=== PATIENT | male | born 2000 | race Caucasian/White ===

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

== ENCOUNTER 2023-01-29 11:17 | Emergency (ER) | payer SELFPAY ==
[2023-01-29 12:09] VITALS: BP 118/71; PULSE 58; TEMP 36.6; O2SAT 100; BMI 23.5
--- NOTE | 2023-01-29 12:22 | ED_ITS ---
HPI - Ear Problem General: Chief complaint: Ear Stated complaint: Not able to hear out of left ear Time Seen by Provider: 01/29/23 11:20 Source: patient Mode of arrival: ambulatory Limitations: no limitations History of Present Illness: Patient is a 22-year-old male who presents to ED today with complaint of bilateral hearing loss with the left ear being greater than the right. Patient states symptoms started over the last couple of days. He started to notice pain in the left ear yesterday. No tinnitus or drainage from the ear noted. No other URI-like symptoms. No headache or neck pain. MD Complaint: ear pain and decreased hearing Location: bilateral Duration: constant Severity: mild Relieving factors: nothing Exacerbating factors: nothing Discharge from ear: no Associated symptoms: Reports no associated symptoms; Denies ear or mastoid pain, fever(s), headache(s), neck pain or tinnitus Treatment prior to arrival: none Review of Systems Const: Denies: fever(s), chills, body aches, fatigue or malaise Eyes: Denies: change in vision, blurry vision, photophobia, floaters or seeing flashes ENMT: Reports: change in hearing; Denies: ear or mastoid pain, ear discharge, tinnitus, disequilibrium, nasal discharge or nasal congestion GI: Denies: nausea or vomiting Musc: Denies: neck pain Neuro: Denies: headache(s) PFS ED PFSH: Medical History (Updated 01/29/23 @ 13:19 by UMESH Klein) ADHD (attention deficit hyperactivity disorder) Bipolar disease, chronic Depression Social History Smoking and tobacco status: never smoked Quit status (tobacco): not considering quitting Second hand smoke exposure: Yes Alcohol intake: never Desire information about alcohol rehabilitation?: No Desire information about substance/drug rehabilitation?: No Caregiver/support person: Yes Lives independently: No Marital status: Single Current occupational status: employed Current occupation: [employer] Current gender identity: Male Physical Exam Const: COMMON NORMALS: no acute distress, average body habitus, no limitations, alert and well nourished HENMT: COMMON NORMALS: normocephalic, atraumatic, external ears normal, Normal external nose present, Normal nasal mucous membranes and turbinates present and oropharynx normal HEAD & SCALP: normal to inspection, normocephalic and atraumatic FACE & SINUS: normal facial exam NOSE: Normal external nose present and Normal nasal mucous membranes and turbinates present EXTERNAL EAR: Yes external ears normal, Yes mastoids normal and Yes no periauricular adenopathy EXTERNAL AUDITORY CANAL: Abnormal EAC present EAC laterality: bilateral cerumen impaction TYMPANIC MEMBRANE: TM normal on the right (visualized after cerumen impaction was cleared) and unable to visualize TM (left due to otic discharge) Neuro: SENSORIUM/ORIENTATION: Yes alert Procedures Ear Wax Removal Both Ears: Results: Re-examined: cerumen removed completely TM Examination: TM(s) intact, normal appearance (on R; L TM unable to visualize due to otic discharge) Ear Canal Exam: atraumatic Patient Tolerated Procedure: well Complications: no problems Technique: ear canal irrigated and ear canal curetted Course Vital Signs: Vital signs: Vital Signs Temperature 97.8 F 01/29/23 12:09 Pulse Rate 58 L 01/29/23 12:09 Blood Pressure 118/71 01/29/23 12:09 Pulse Oximetry 100 01/29/23 12:09 Oxygen Delivery Me thod 01/29/23 12:09 MDM - Ear Medical Decision Making Hearing improved after cerumen impaction were cleared. He did have quite a bit of otic discharge to L EAC after cerumen was removed. Will place on Ciprodex for concerns for possible otitis externa. Return to ED precautions given. Discharge Plan Discharge Patient Disposition: Home Clinical Impression: Bilateral impacted cerumen Acute otitis externa of left ear Qualifiers: Otitis externa type: unspecified type Qualified Code(s): H60.502 - Unspecified acute noninfective otitis externa, left ear Condition: Stable Prescriptions: New Ciprodex 0.3-0.1 % drops,suspension 4 drp otic (ear) BID 7 Days Qty: 7.5 0RF Discharge Orders: Discharge ED (Routine); Ordered 01/29/23 Ordered By: Nisha Lowe Patient Instructions: Otitis Externa - Adult Activity Restrictions/Additional Instructions: As we discussed you need to follow-up with your primary care provider or walk-in clinic in 5 to 7 days to assess for improvement/resolution of symptoms. 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
--- NOTE | 2023-02-05 14:45 | DCPLANNER ---
Addendum entered by Beatriz Garibay 02/05/23 14:45: TCM called patient due to no primary care physician on 02.05.23 - no answer at this time. Original Note: TCM called patient due to no primary care physician. TCM called patient on 02.03.23 - no answer at this time.
== END 2023-01-29 13:41 | disposition home or self-care (01) ==
PROVIDERS: Emergency Provider Physician Assistant
DX: H60.502 Unspecified acute noninfective otitis externa, left ear (principal); H61.23 Impacted cerumen, bilateral
CPT/HCPCS: 99283

== ENCOUNTER 2023-06-17 04:29 | Emergency (ER) | payer SELFPAY ==
[2023-06-17 04:33] VITALS: BP 125/84; PULSE 74; RESP 16; TEMP 36.7; O2SAT 100; BMI 19.1
[2023-06-17 04:36] VITALS: BP 110/64; PULSE 62; RESP 16; O2SAT 98
--- NOTE | 2023-06-17 04:36 | ED_ITS ---
HPI - Nausea/Vomiting/Diarrhea General: Chief complaint: Nausea/Vomiting/Diarrhea Stated complaint: Vomiting Time Seen by Provider: 06/17/23 04:31 Source: patient Mode of arrival: ambulatory Limitations: no limitations History of Present Illness: 22-year-old male states he has been having vomiting tonight since midnight. States last time he threw up was at 230 he does smoke marijuana almost every day he denies any abdominal pain denies any fevers he denies any worsening proving factors. Denies any diarrhea. Associated nausea: Yes Associated symtoms: Reports nausea; Denies chest pain or headache(s) Review of Systems Const: Denies: fever(s) or chills Eyes: Denies: eye discomfort ENMT: Denies: throat pain or dental pain Card: Denies: chest pain Resp: Denies: dyspnea GI: Reports: nausea and vomiting; Denies: abdominal pain Musc: Denies: neck pain or back pain Skin/Breast: Denies: rash Neuro: Denies: headache(s) PFS ED PFSH: Medical History (Updated 06/17/23 @ 05:26 by Mainor Hoyos MD) ADHD (attention deficit hyperactivity disorder) Bipolar disease, chronic Depression Social History Smoking and tobacco status: never smoked Quit status (tobacco): not considering quitting Second hand smoke exposure: Yes Alcohol intake: never Desire information about alcohol rehabilitation?: No Substance/Drug Use: never Desire information about substance/drug rehabilitation?: No Caregiver/support person: Yes Lives independently: No Marital status: Single Current occupational status: employed Current occupation: [employer] Current gender identity: Male Physical Exam Const: COMMON NORMALS: no acute distress, patient oriented x3 and healthy appearing HENMT: COMMON NORMALS: normocephalic and atraumatic HEAD & SCALP: normocephalic and atraumatic Eye: COMMON NORMALS: Equal, round and reactive pupils present and EOMs intact bilaterally PUPIL: Yes Equal, round and reactive pupils present Neck/C-Spine: COMMON NORMALS: full ROM and supple Chest: COMMONS NORMALS: normal inspection of the chest and normal palpation of entire chest wall Resp: COMMON NORMALS: normal respiratory effort, No retractions, No use of accessory muscles and clear to auscultation bilaterally AUSCULTATION: clear to auscultation bilaterally Cardio: COMMON NORMALS: regular rate, regular rhythm and No murmurs present (Cardio) RATE: regular rate RHYTHM: regular rhythm GI: COMMON NORMALS: Normal to inspection, nondistended, normoactive bowel sounds present, Soft to palpation, non-tender and no masses PALPATION: Yes Soft to palpation Extremity: COMMON NORMALS: normal to inspection and full ROM Neuro: COMMON NORMALS: patient oriented x3, moves all extremities and no focal motor deficits Psych: COMMON NORMALS: mental status grossly normal, Normal thought process present and cooperative THOUGHT PROCESS: Normal thought process present Skin: COMMON NORMALS: no rashes or lesions noted and no wounds GENERAL SKIN EXAM: no rashes or lesions noted Course Vital Signs: Vital signs: Vital Signs Temperature 98.0 F 06/17/23 04:33 Pulse Rate 62 06/17/23 04:36 Respiratory Rate 16 06/17/23 04:36 Blood Pressure 110/64 06/17/23 04:36 Pulse Oximetry 98 06/17/23 04:36 Oxygen Delivery Me thod Room Air 06/17/23 04:36 MDM - Nausea/Vomiting/Diarrhea Medical Decision Making Patient presents here with nausea vomiting he feels much improved here his abdominal exam is benign no signs of acute surgical abdomen we will prescribe him Zofran for home he is to follow-up his PCP and return if worsening. Medical Records I reviewed the patient's medical records. Lab Data I reviewed the patient's lab results. 06/17/23 04:43 06/17/23 04:43 Laboratory Results WBC 13.0 10^3/uL (4.0-10.0) H 06/17/23 04:43 RBC 4.80 10^6/uL (4.1-5.3) 06/17/23 04:43 Hgb 14.3 g/dL (11.7-16.6) 06/17/23 04:43 Hct 43.4 % (42.0-52.0) 06/17/23 04:43 MCV 90.4 fl (80-94) 06/17/23 04:43 MCH 29.8 pg (28.0-34.0) 06/17/23 04:43 MCHC 32.9 g/dL (30.0-36.0) 06/17/23 04:43 RDW 12.6 % (12.1-15.1) 06/17/23 04:43 Plt Count 231 10^3/cmm (130-400) 06/17/23 04:43 MPV 9.5 fL (7.4-10.4) 06/17/23 04:43 Neut % (Auto) 86.1 % 06/17/23 04:43 Lymph % (Auto) 10.9 % 06/17/23 04:43 Mcminn % (Auto) 2.5 % 06/17/23 04:43 Eos % (Auto) 0.0 % 06/17/23 04:43 Baso % (Auto) 0.3 % 06/17/23 04:43 Neut # (Auto) 11.16 10^3/uL (1.8-7.7) H 06/17/23 04:43 Lymph # (Auto) 1.4 10^3/uL (0.8-4.8) 06/17/23 04:43 Mcminn # (Auto) 0.3 10^3/uL (0.2-0.9) 06/17/23 04:43 Eos # (Auto) 0.0 10^3/uL (0.0-0.8) 06/17/23 04:43 Baso # (Auto) 0.0 10^3/uL (0.0-0.1) 06/17/23 04:43 Nucleated RBC % (auto) 0 % 06/17/23 04:43 Nucleated RBCs # 0.0 /100WBC 06/17/23 04:43 Sodium 138 mmol/L (136-145) 06/17/23 04:43 Potassium 3.3 mmol/L (3.5-5.1) L 06/17/23 04:43 Chloride 100 mmol/L (98-107) 06/17/23 04:43 Carbon Dioxide 28 mmol/L (22-29) 06/17/23 04:43 Anion Gap 13.3 (5-19) 06/17/23 04:43 BUN 10 mg/dL (6-20) 06/17/23 04:43 Creatinine 1.0 mg/dL (0.7-1.2) 06/17/23 04:43 GFR Calculation 94.3 mL/min (90-130) 06/17/23 04:43 Glucose 68 mg/dL (65-115) 06/17/23 04:43 Calculated Osmolality 283 mOsm/kg (285-295) L 06/17/23 04:43 Calcium 10.1 mg/dL (8.5-10.5) 06/17/23 04:43 Total Bilirubin 0.6 mg/dL (0.15-1.2) 06/17/23 04:43 AST 19 U/L (0-40) 06/17/23 04:43 ALT 14 U/L (0-41) 06/17/23 04:43 Alkaline Phosphatase 63 U/L (40-130) 06/17/23 04:43 Total Protein 7.9 g/dL (6.6-8.7) 06/17/23 04:43 Albumin 5.0 g/dL (3.5-5.2) 06/17/23 04:43 Globulin 2.9 g/dL (1.3-4.6) 06/17/23 04:43 Lipase 21 U/L (13-60) 06/17/23 04:43 Discharge Plan Discharge Patient Disposition: Home Clinical Impression: Vomiting Condition: Stable Prescriptions: New ondansetron 4 mg tablet,disintegrating 4 mg PO Q6H PRN (Reason: nausea and vomiting) Qty: 14 0RF Discharge Orders: Discharge ED (Routine); Ordered 06/17/23 Ordered By: Mainor Hoyos Discharge Diet: Advance as tolerated Discharge Activity: Resume usual activity Patient Instructions: Acute Nausea and Vomiting (ED) Coding Level of Care Code ED Liquor Store Manager for Clive Reza
[2023-06-17] MEDS: ondansetron 2 mg/ML SDV 2 mL 4 MG IVP (04:48)
[2023-06-17] MEDS: sodium chloride 0.9% 1,000 ML 999 ML IV (04:48)
[2023-06-17 04:55] LABS: Basophils % 0.3 %; Hematocrit 43.4 % (42.0-52.0); Hemoglobin 14.3 g/dL (11.7-16.6); Lymphocytes # 1.4 10^3/uL (0.8-4.8); Lymphocytes % 10.9 %; Mean Corpuscular HGB Conc 32.9 g/dL (30.0-36.0); Mean Corpuscular Hemoglobin 29.8 pg (28.0-34.0); Mean Corpuscular Volume 90.4 fl (80-94); Mean Platelet Volume 9.5 fL (7.4-10.4); Monocytes # 0.3 10^3/uL (0.2-0.9); Monocytes % 2.5 %; Neutrophils # 11.16 10^3/uL (1.8-7.7); Neutrophils % 86.1 %; Nucleated Red Blood Cells % 0 %; Platelet Count 231 10^3/cmm (130-400); Red Cell Distribution Width 12.6 % (12.1-15.1)
[2023-06-17 05:22] LABS: Alanine Aminotransferase 14 U/L (0-41); Alkaline Phosphatase 63 U/L (40-130); Anion Gap 13.3 (5-19); Aspartate Amino Transferase 19 U/L (0-40); Blood Urea Nitrogen 10 mg/dL (6-20); Calcium 10.1 mg/dL (8.5-10.5); Carbon Dioxide 28 mmol/L (22-29); Chloride 100 mmol/L (98-107); Globulin 2.9 g/dL (1.3-4.6); Glomerular Filtration Rate 94.3 mL/min (90-130); Glucose 68 mg/dL (65-115); Lipase 21 U/L (13-60); Osmolality Calculated 283 mOsm/kg (285-295); Potassium 3.3 mmol/L (3.5-5.1); Sodium 138 mmol/L (136-145); Total Bilirubin 0.6 mg/dL (0.15-1.2); Total Protein 7.9 g/dL (6.6-8.7)
[2023-06-17 05:34] VITALS: BP 113/77; PULSE 75; RESP 14; O2SAT 99
== END 2023-06-17 05:36 | disposition home or self-care (01) ==
PROVIDERS: Emergency Provider Emergency Medicine
DX: R11.11 Vomiting without nausea (principal); Z77.22 Contact with and (suspected) exposure to environmental tobacco smoke (acute) (chronic)
CPT/HCPCS: 80053; 83690; 85025; 96361; 96374; 99284; J2405; J7030

== ENCOUNTER 2023-07-03 04:25 | Emergency (ER) | payer SELFPAY ==
--- NOTE | 2023-07-03 04:27 | XRR_ITS ---
PROCEDURE INFORMATION: Exam: XR Abdomen Exam date and time: 07/03/2023 4:51 AM Age: 22 years old Clinical indication: Constipation TECHNIQUE: Imaging protocol: Radiologic exam of the abdomen. Views: Frontal supine view of the abdomen. 1 View. COMPARISON: CR XR hip RT 2-3V wo/w pel* [id number] 09/28/2020 4:11 PM FINDINGS: Gastrointestinal tract: Normal. No bowel dilation. Bones/joints: Unremarkable. Other findings: Mild increased stool otherwise negative XR/XR KUB [id number] IMPRESSION: Mild increased stool otherwise negative
[2023-07-03 04:36] VITALS: BP 140/94; PULSE 78; RESP 16; TEMP 36.7; O2SAT 97; BMI 18.6
--- NOTE | 2023-07-03 04:49 | W.ED.ABDPA2 ---
HPI - Abdominal Pain General: Chief Complaint: Abdominal Pain Stated Complaint: problem with bowel movement Time Seen by Provider: 07/03/23 04:31 Source: patient Mode of arrival: ambulatory Limitations: no limitations History of Present Illness: 22-year-old male presents here with constipation he states he has not had a bowel movement in 1 week. States that he is causing some abdominal cramping had no vomiting. He denies any worsening improving factors. He states he tried powder at home he is unsure what it was. Associated Symptoms: Reports constipation; Denies chills, diarrhea, fever(s), nausea and vomiting Review of Systems Const: Denies: fever(s) or chills ENMT: Denies: throat pain or dental pain Card: Denies: chest pain Resp: Denies: dyspnea GI: Reports: abdominal pain and constipation; Denies: nausea, vomiting or diarrhea Musc: Denies: neck pain or back pain Skin/Breast: Denies: rash Neuro: Denies: headache(s) PFS ED PFSH: Medical History (Updated 07/03/23 @ 05:10 by Mainor Hoyos MD) ADHD (attention deficit hyperactivity disorder) Bipolar disease, chronic Depression Social History Smoking and tobacco status: never smoked Quit status (tobacco): not considering quitting Second hand smoke exposure: Yes Alcohol intake: never Desire information about alcohol rehabilitation?: No Substance/Drug Use: never Desire information about substance/drug rehabilitation?: No Caregiver/support person: Yes Lives independently: No Marital status: Single Current occupational status: employed Current occupation: [employer] Current gender identity: Male Physical Exam Const: COMMON NORMALS: no acute distress, patient oriented x3 and healthy appearing HENMT: COMMON NORMALS: normocephalic and atraumatic HEAD & SCALP: normocephalic and atraumatic Neck/C-Spine: COMMON NORMALS: full ROM and supple Chest: COMMONS NORMALS: normal inspection of the chest Resp: COMMON NORMALS: normal respiratory effort Cardio: COMMON NORMALS: regular rate and No murmurs present (Cardio) RATE: regular rate GI: INSPECTION: Yes normal to inspection Extremity: COMMON NORMALS: normal to inspection Neuro: COMMON NORMALS: patient oriented x3, moves all extremities and no focal motor deficits Psych: COMMON NORMALS: mental status grossly normal, Normal thought process present and cooperative THOUGHT PROCESS: Normal thought process present Skin: COMMON NORMALS: no rashes or lesions noted and no wounds GENERAL SKIN EXAM: no rashes or lesions noted Course Vital Signs: Vital signs: Vital Signs Temperature 98.0 F 07/03/23 04:36 Pulse Rate 78 07/03/23 04:36 Respiratory Rate 16 07/03/23 04:36 Blood Pressure 140/94 07/03/23 04:36 Pulse Oximetry 97 07/03/23 04:36 Oxygen Delivery Me thod Room Air 07/03/23 04:36 MDM - Abdominal Pain Medical Decision Making Patient presents here with constipation did give him lactulose here we will prescribe Kelly Lasix abdominal exam is benign he is stable for discharge at this time return if worsening. Medical Records I reviewed the patient's medical records. Lab Data I reviewed the patient's lab results. Labs/Radiology: Radiology Impressions KUB X-Ray 07/03/23 04:27 IMPRESSION: Mild increased stool otherwise negative Discharge Plan Discharge Patient Disposition: Home Clinical Impression: Constipation Condition: Stable Prescriptions: New polyethylene glycol 3350 [Miralax] 17 gram powder in packet 17 g PO DAILY PRN (Reason: constipation) Qty: 14 0RF No Action ondansetron 4 mg tablet,disintegrating 4 mg PO Q6H PRN (Reason: nausea and vomiting) Qty: 14 0RF Discharge Orders: Discharge ED (Routine); Ordered 07/03/23 Ordered By: Mainor Hoyos Discharge Diet: Advance as tolerated Discharge Activity: Resume usual activity Patient Instructions: Constipation (ED) Coding Level of Care Code ED Commissary Clerk for Clive Reza
[2023-07-03] MEDS: polyethylene glycol 3350 Pkt 17 gm PO (04:50)
[2023-07-03 05:18] VITALS: BP 140/94; PULSE 16; RESP 72; O2SAT 96
== END 2023-07-03 05:19 | disposition home or self-care (01) ==
PROVIDERS: Emergency Provider Emergency Medicine
DX: K59.00 Constipation, unspecified (principal); Z77.22 Contact with and (suspected) exposure to environmental tobacco smoke (acute) (chronic)
CPT/HCPCS: 74018; 99283

== ENCOUNTER 2023-10-14 19:09 | Emergency (ER) | payer SELFPAY ==
[2023-10-14 19:14] VITALS: BP 147/70; PULSE 116; RESP 18; TEMP 36.6; O2SAT 100; BMI 18.8
[2023-10-14 19:31] LABS: Basophils % 0.4 %; Eosinophils # 0.1 10^3/uL (0.0-0.8); Eosinophils % 1.5 %; Hematocrit 45.7 % (37-53); Lymphocytes # 1.8 10^3/uL (0.8-4.8); Lymphocytes % 32.2 %; Mean Corpuscular HGB Conc 32.8 g/dL (30-55); Mean Corpuscular Hemoglobin 29.6 pg (27-33); Mean Corpuscular Volume 90.3 fl (82-101); Mean Platelet Volume 9.5 fL (7.4-10.4); Monocytes # 0.3 10^3/uL (0.2-0.9); Neutrophils # 3.31 10^3/uL (1.8-7.7); Neutrophils % 60.7 %; Nucleated Red Blood Cells % 0 %; Platelet Count 230 10^3/cmm (157-399); Red Blood Count 5.06 10^6/uL (3.85-5.65); Red Cell Distribution Width 12.4 % (12.1-15.1); White Blood Count 5.44 10^3/uL (3.29-11.43)
[2023-10-14 19:52] LABS: Alanine Aminotransferase 17 U/L (0-41); Albumin Level 4.8 g/dL (3.5-5.2); Alkaline Phosphatase 76 U/L (40-130); Anion Gap 14.5 (5-19); Aspartate Amino Transferase 20 U/L (0-40); Blood Urea Nitrogen 14 mg/dL (6-20); Calcium 9.6 mg/dL (8.5-10.5); Carbon Dioxide 25 mmol/L (22-29); Chloride 103 mmol/L (98-107); Globulin 3.5 g/dL (1.3-4.6); Glomerular Filtration Rate 93.4 mL/min (90-130); Glucose 123 mg/dL (65-115); Lipase 19 U/L (13-60); Osmolality Calculated 290 mOsm/kg (285-295); Potassium 3.5 mmol/L (3.5-5.1); Sodium 139 mmol/L (136-145); Total Bilirubin 0.8 mg/dL (0.15-1.2); Total Protein 8.3 g/dL (6.6-8.7)
--- NOTE | 2023-10-14 20:08 | XRR_ITS ---
PROCEDURE INFORMATION: Exam: XR Abdomen Exam date and time: 10/14/2023 8:13 PM Age: 23 years old Clinical indication: Nausea and vomiting TECHNIQUE: Imaging protocol: Radiologic exam of the abdomen. Views: Frontal supine view of the abdomen. 1 View. COMPARISON: CR XR KUB [id number] 07/03/2023 4:51 AM FINDINGS: Gastrointestinal tract: Normal. No bowel dilation. Nonspecific bowel gas pattern. Bones/joints: Unremarkable. XR/XR KUB [id number] IMPRESSION: No acute findings.
[2023-10-14] MEDS: sodium chloride 0.9% 1,000 ML 999 ML IV (20:14)
[2023-10-14] MEDS: metoclopramide 5 mg/mL SDV 2 mL 10 MG IVP (20:15)
[2023-10-14] MEDS: diphenhydrAMINE 50 mg/mL SDV 1mL IVP (20:16)
--- NOTE | 2023-10-14 20:20 | ED_ITS ---
HPI - Abdominal Pain General: Chief Complaint: Abdominal Pain Stated Complaint: n/v/d Time Seen by Provider: 10/14/23 19:52 Source: patient Mode of arrival: ambulatory Limitations: no limitations History of Present Illness: 23-year-old male states he has been having chronic abdominal pain nausea and vo miting for 6 to 7 months. He does admit to marijuana use but states he does not believe that that is causing it. He states that he has been seen at multiple facilities had multiple work-ups with no findings. He states he is continue to have vomiting denies any worsening proving factors. has had constipation Associated Symptoms: Reports nausea and vomiting; Denies chills, diarrhea, dysuria and fever(s) Review of Systems Const: Denies: fever(s) or chills ENMT: Denies: throat pain or dental pain Card: Denies: chest pain Resp: Denies: dyspnea GI: Reports: abdominal pain, nausea and vomiting; Denies: diarrhea : Denies: dysuria Musc: Denies: neck pain or back pain Skin/Breast: Denies: rash Neuro: Denies: headache(s) PFSH ED PFSH: Medical History (Updated 10/14/23 @ 20:26 by Mainor Hoyos MD) ADHD (attention deficit hyperactivity disorder) Bipolar disease, chronic Depression Social History Smoking and tobacco/nicotine status: former use of tobacco/nicotine Quit status (tobacco/nicotine): has quit using Former quit date comment: quit 3 months ago Second hand smoke exposure: Yes Alcohol intake: current Alcohol intake frequency: few times a week Alcohol type: hard liquor Substance/Drug Use: never Caregiver/support person: Yes Lives independently: No Household members: family Marital status: Single Current occupational status: employed Current occupation: [employer] Current gender identity: Male Special darcy needs: No Physical Exam Const: COMMON NORMALS: no acute distress, patient oriented x3 and healthy appearing HENMT: COMMON NORMALS: normocephalic and atraumatic HEAD & SCALP: no rmocephalic and atraumatic Eye: COMMON NORMALS: Equal, round and reactive pupils present and EOMs intact bilaterally PUPIL: Yes Equal, round and reactive pupils present Neck/C-Spine: COMMON NORMALS: full ROM and supple Chest: COMMONS NORMALS: normal inspection of the chest and normal palpation of entire chest wall Resp: COMMON NORMALS: normal respiratory effort, No retractions, No use of accessory muscles and clear to auscultation bilaterally AUSCULTATION: clear to auscultation bilaterally Cardio: COMMON NORMALS: regular rate, regular rhythm and No murmurs present (Cardio) RATE: regular rate RHYTHM: regular rhythm GI: COMMON NORMALS: Normal to inspection, nondistended, normoactive bowel sounds present, Soft to palpation, non-tender and no masses PALPATION: Yes Soft to palpation Extremity: COMMON NORMALS: normal to inspection and full ROM Neuro: COMMON NORMALS: patient oriented x3, moves all extremities and no focal motor deficits Psych: COMMON NORMALS: mental status grossly normal, Normal thought process present and cooperative THOUGHT PROCESS: Normal thought process present Skin: COMMON NORMALS: no rashes or lesions noted and no wounds GENERAL SKIN EXAM: no rashes or lesions noted Course Vital Signs: Vital signs: Vital Signs Temperature 97.8 F 10/14/23 19:14 Pulse Rate 73 10/14/23 20:21 Respiratory Rate 16 10/14/23 20:21 Blood Pressure 125/66 10/14/23 20:21 Pulse Oximetry 100 10/14/23 20:21 Oxygen Delivery Me thod Room Air 10/14/23 20:21 MDM - Abdominal Pain Medical Decision Making Patient presents here with abdominal pain chronic vomiting and constipation no signs of bowel obstruction area is constipated on his x-ray has been seen multiple times we will get him follow-up with surgery at this time he is to take MiraLAX at home. Medical Records I reviewed the patient's medical records. Lab Data I reviewed the patient's lab results. 10/14/23 19:24 10/14/23 19:24 Labs/Radiology: Laboratory Results WBC 5.44 10^3/uL (3.29-11.43) 10/14/23 19:24 RBC 5.06 10^6/uL (3.85-5.65) 10/14/23 19:24 Hgb 15.00 g/dL (11.27-16.99) 10/14/23 19:24 Hct 45.7 % (37-53) 10/14/23 19:24 MCV 90.3 fl (82-101) 10/14/23 19:24 MCH 29.6 pg (27-33) 10/14/23 19:24 MCHC 32.8 g/dL (30-55) 10/14/23 19:24 RDW 12.4 % (12.1-15.1) 10/14/23 19:24 Plt Count 230 10^3/cmm (157-399) 10/14/23 19:24 MPV 9.5 fL (7.4-10.4) 10/14/23 19:24 Neut % (Auto) 60.7 % 10/14/23 19:24 Lymph % (Auto) 32.2 % 10/14/23 19:24 Hettinger % (Auto) 5.0 % 10/14/23 19:24 Eos % (Auto) 1.5 % 10/14/23 19:24 Baso % (Auto) 0.4 % 10/14/23 19:24 Neut # (Auto) 3.31 10^3/uL (1.8-7.7) 10/14/23 19:24 Lymph # (Auto) 1.8 10^3/uL (0.8-4.8) 10/14/23 19:24 Hettinger # (Auto) 0.3 10^3/uL (0.2-0.9) 10/14/23 19:24 Eos # (Auto) 0.1 10^3/uL (0.0-0.8) 10/14/23 19:24 Baso # (Auto) 0.0 10^3/uL (0.0-0.1) 10/14/23 19:24 Nucleated RBC % (auto) 0 % 10/14/23 19:24 Nucleated RBCs # 0.0 /100WBC 10/14/23 19:24 Sodium 139 mmol/L (136-145) 10/14/23 19:24 Potassium 3.5 mmol/L (3.5-5.1) 10/14/23 19:24 Chloride 103 mmol/L (98-107) 10/14/23 19:24 Carbon Dioxide 25 mmol/L (22-29) 10/14/23 19:24 Anion Gap 14.5 (5-19) 10/14/23 19:24 BUN 14 mg/dL (6-20) 10/14/23 19:24 Creatinine 1.0 mg/dL (0.7-1.2) 10/14/23 19:24 GFR Calculation 93.4 mL/min (90-130) 10/14/23 19:24 Glucose 123 mg/dL (65-115) H 10/14/23 19:24 Calculated Osmolality 290 mOsm/kg (285-295) 10/14/23 19:24 Calcium 9.6 mg/dL (8.5-10.5) 10/14/23 19:24 Total Bilirubin 0.8 mg/dL (0.15-1.2) 10/14/23 19:24 AST 20 U/L (0-40) 10/14/23 19:24 ALT 17 U/L (0-41) 10/14/23 19:24 Alkaline Phosphatase 76 U/L (40-130) 10/14/23 19:24 Total Protein 8.3 g/dL (6.6-8.7) 10/14/23 19:24 Albumin 4.8 g/dL (3.5-5.2) 10/14/23 19:24 Globulin 3.5 g/dL (1.3-4.6) 10/14/23 19:24 Lipase 19 U/L (13-60) 10/14/23 19:24 XR interpretation done by ED provider, pending radiology final review Discharge Plan Discharge Patient Disposition: Home Clinical Impression: Abdominal pain, Constipation, Vomiting Condition: Stable Prescriptions: Continued Miralax 17 gram powder in packet 17 g PO DAILY PRN (Reason: constipation) Qty: 14 0RF No Action azithromycin [Zithromax Z-Sohan] 250 mg tablet See Rx Instructions PO .COMPLEX Qty: 6 0RF Rx Instructions: take 500 mg today (day 1), then 250 mg for 4 days (days 2-5) PO pantoprazole [Protonix] 40 mg tablet,delayed release (DR/EC) 40 mg PO BID Qty: 60 3RF ondansetron 4 mg tablet,disintegrating 4 mg PO Q6H PRN (Reason: nausea and vomiting) Qty: 14 0RF Discharge Orders: Discharge ED (Routine); Ordered 10/14/23 Ordered By: Mainor Hoyos Referrals: Grady Gunter MD [Physician] - 1-3 days Discharge Diet: Advance as tolerated Discharge Activity: Resume usual activity Patient Instructions: Constipation (ED), Abdominal Pain (ED) Coding Level of Care Code ED Heel Sprayer for Clive Reza
[2023-10-14 20:21] VITALS: BP 125/66; PULSE 73; RESP 16; O2SAT 100
[2023-10-14] MEDS: lactulose oral liq 20 gm/30 mL UDC 30 GM PO (20:40)
[2023-10-14 20:44] VITALS: BP 125/66; PULSE 80; RESP 16; O2SAT 100
[2023-10-14 20:47] VITALS: BP 125/66; PULSE 82; RESP 16; O2SAT 99
--- NOTE | 2023-10-15 07:29 | DCPLANNER ---
sent message to general surgeon for follow up on Abdominal Pain Constipation
== END 2023-10-14 20:48 | disposition home or self-care (01) ==
PROVIDERS: Emergency Provider Emergency Medicine
DX: K59.00 Constipation, unspecified (principal); R11.11 Vomiting without nausea; Z87.891 Personal history of nicotine dependence
CPT/HCPCS: 36415; 74018; 80053; 83690; 85025; 96374; 96375; 99284; J1200; J2765; J7030